=== PATIENT | male | born 1990 | race American Indian/Alaskan Native ===

== ENCOUNTER 2017-02-03 12:37 | Emergency (ER) | payer MEDICARE ==
[2017-02-03 12:40] VITALS: BP 121/80; PULSE 84; RESP 20; TEMP 98.6; O2SAT 100
--- NOTE | 2017-02-03 13:22 | ED PDOC ---
HPI: Psych/Substance Abuse Time Seen by Provider: 02/03/17 12:59 Chief Complaint (Nursing): Psychiatric Evaluation Chief Complaint (Provider): Psychiatric evaluation History Per: Patient History/Exam Limitations: no limitations Onset/Duration Of Symptoms: Hrs Additional History Per: EMS Additional Complaint(s): Benny Oliver is a 26 year old male with a past medical history of schizophrenia who presents to the ED accompanied by EMS for initial chief complaints of nausea and vomiting. Denies initial complaints but does have hallucinations. Patient admits to not taking medication. Of note, patient states he and Indy Ryder were dating but broke up and aren't together anymore. Past Medical History Reviewed: Historical Data, Nursing Documentation, Vital Signs Vital Signs: Last Vital Signs Temp 98.6 F 02/03/17 12:38 Pulse 84 02/03/17 12:38 Resp 20 02/03/17 12:38 BP 121/80 02/03/17 12:38 Pulse Ox 100 02/03/17 12:38 - Medical History PMH: Schizophrenia - Surgical History Surgical History: No Surg Hx - Family History Family History: States: Unknown Family Hx - Allergies Allergies/Adverse Reactions: Allergies Allergy/AdvReac Type Severity Reaction Status Date / Time No Known Allergies Allergy Verified 02/03/17 12:38 Review of Systems ROS Statement: Except As Marked, All Systems Reviewed And Found Negative Psych: Positive for: Other (Hallucinations) Physical Exam - Reviewed Nursing Documentation Reviewed: Yes Vital Signs Reviewed: Yes - Physical Exam Appears: Positive for: Well, Non-toxic, No Acute Distress Skin: Positive for: Normal Color Cardiovascular/Chest: Positive for: Regular Rate, Rhythm. Negative for: Murmur , Tachycardia Respiratory: Positive for: Normal Breath Sounds. Negative for: Wheezing, Respiratory Distress Neurologic/Psych: Positive for: Alert, Oriented Comments: Patient being evaluated by crisis. - ECG O2 Sat by Pulse Oximetry: 100 (RA) Pulse Ox Interpretation: Normal Medical Decision Making Medical Decision Makin: Initial Impression 26 year old male for psychiatric evaluation Initial Plan: * Psych eval * Crisis eval * pt is cleared for d/c for bipolar d/o under [facility] pt is stable for d/c Scribe Attestation: Documented by Bridgett Nieto acting as a scribe for Pao West PA-C. Provider Scribe Attestation: All medical record entries made by the Arabella were at my direction and personally dictated by me. I have reviewed the chart and agree that the record accurately reflects my personal performance of the history, physical exam, medical decision making, and the department course for this patient. I have also personally directed, reviewed, and agree with the discharge instructions and disposition. Disposition - Clinical Impression Clinical Impression: Bipolar 1 disorder - Patient ED Disposition Is Patient to be Admitted: No Counseled Patient/Family Regarding: Studies Performed, Diagnosis, Need For Followup - Disposition Disposition: Routine/Home Disposition Time: 13:44 Condition: STABLE Instructions: Bipolar Disorder (ED)
== END 2017-02-03 13:59 | disposition home or self-care (01) ==
LOC: H.ER 12:37
DX: F31.9 Bipolar disorder, unspecified (principal); F20.9 Schizophrenia, unspecified